=== PATIENT | female | born 2000 | race Caucasian/White ===

== ENCOUNTER 2024-09-08 23:20 | Emergency (ER) | payer SELFPAY ==
[2024-09-08 23:28] VITALS: BP 132/81
[2024-09-08 23:30] VITALS: BP 134/72
[2024-09-08] MEDS ORDERED: SULFAMETHOXAZOLE W/TRIMETHOPRI 1 COMBO TAB PO ONE (23:40)
[2024-09-08] MEDS ORDERED: BACTRIM DS1 TAB PO (23:43)
[2024-09-08 23:46] VITALS: BP 125/63
[2024-09-08 23:51] VITALS: BP 125/63
== END 2024-09-09 00:10 | disposition home or self-care (01) | DRG 603 ==
LOC: ED 23:20
DX: L03.114 Cellulitis of left upper limb (principal); M79.642 Pain in left hand

== ENCOUNTER 2024-09-09 22:39 | Emergency (ER) | payer SELFPAY ==
[~2024-09-09] VITALS: Ht 144.8 cm; Wt 61.0 kg
[~2024-09-09 22:39] MED LIST: BACTRIM DS1 TAB PO
[2024-09-09 23:11] VITALS: BP 67/49
[2024-09-09] MEDS ORDERED: IBUPROFEN 600 MG/TAB PO ONE (23:15)
[2024-09-09] MEDS ORDERED: traMADol HCL 50 MG/TAB PO ONE (23:15)
[2024-09-09] MEDS ORDERED: ACETAMINOPHEN 500 MG TAB PO ONE (23:15)
[2024-09-09 23:16] VITALS: BP 118/64
[2024-09-09 23:31] VITALS: BP 106/56
[2024-09-09 23:45] VITALS: BP 114/63
[2024-09-09 23:46] VITALS: BP 114/63
== END 2024-09-09 23:47 | disposition home or self-care (01) | DRG 603 ==
LOC: ED 22:39
DX: L03.114 Cellulitis of left upper limb (principal)